=== PATIENT | male | born 1940 | race Caucasian/White ===

== ENCOUNTER 2021-04-23 17:27 | Inpatient (IN) | payer MEDICARE, OTHER ==
[~2021-04-23] VITALS: Ht 177.8 cm; Wt 63.6 kg
[~2021-04-23 17:27] MED LIST: HYDR-4383 PO; LISI5TAB22 PO
[2021-04-23 18:06] LABS: BASOPHILS % (AUTO) 0.3 % (0-1); EOSINOPHILS % (AUTO) 0.2 % (0-6); HEMATOCRIT 38.6 % (42.0-52.0); LYMPHOCYTES # (AUTO) 0.8 X10'3 (1.1-4.8); LYMPHOCYTES % (AUTO) 7.2 % (21-51); MEAN CORPUSCULAR HEMOGLOBIN 32.1 PG (27.0-31.0); MEAN CORPUSCULAR HGB CONC 33.6 g/dL (33.0-36.5); MEAN CORPUSCULAR VOLUME 95.4 FL (78-98); MEAN PLATELET VOLUME 6.8 FL (7.4-10.4); MONOCYTES # (AUTO) 0.7 X10'3 (0-0.9); MONOCYTES % (AUTO) 6.1 % (2-12); NEUTROPHILS # (AUTO) 9.2 X10'3 (1.8-7.7); NEUTROPHILS % (AUTO) 86.2 % (42-75); PLATELET COUNT 353 X10'3 (140-440); RED BLOOD COUNT 4.04 X10'6 (4.70-6.10); RED CELL DISTRIBUTION WIDTH 14.2 % (11.5-14.5); WHITE BLOOD COUNT 10.7 X10'3 (4.5-11.0)
[2021-04-23 18:20] LABS: ALANINE AMINOTRANSFERASE 21 U/L (12-78); ALBUMIN 3.3 G/DL (3.4-5.0); ALBUMIN/GLOBULIN RATIO 0.9 (1.1-1.5); ALKALINE PHOSPHATASE 138 IU/L (46-116); ANION GAP 9 (8-16); ASPARTATE AMINO TRANSFERASE 32 U/L (10-37); BILIRUBIN,TOTAL 1.4 MG/DL (0.1-1.0); BLOOD UREA NITROGEN 28 MG/DL (7-18); CALCIUM 8.8 MG/DL (8.5-10.1); CHLORIDE 105 MMOL/L (99-107); CREATININE 1.27 MG/DL (0.60-1.10); GLUCOSE 129 MG/DL (70-104); POTASSIUM 3.5 MMOL/L (3.5-5.1); SODIUM 142 MMOL/L (135-145); TOTAL CARBON DIOXIDE 27.7 MMOL/L (24-32); TOTAL PROTEIN 6.9 G/DL (6.4-8.2); eGFR 54 ML/MIN
--- NOTE | 2021-04-23 19:02 | NUR ---
PER DR. CORDOVA, NO CATH FOR URINE. COMFORT MEASURES ONLY.
--- NOTE | 2021-04-24 04:59 | NUR ---
PT HAS BEEN SLEEPING THROUGH THE NIGHT. NAD.
[2021-04-24 15:11] VITALS: BP 199/83
--- NOTE | 2021-04-24 16:05 | NUR ---
PAGER ID: [phone] MESSAGE: [id number] Sean Collins. Comfort Care patient from ER... I need meds for him. Lidia [id number]
[2021-04-24] MEDS ORDERED: LORazepam 2 mg/ml vial IV PRN (16:25)
[2021-04-24] MEDS ORDERED: LORazepam 1 MG tablet PO PRN ×2 (16:40→17:45)
[2021-04-24] MEDS: morphine 10mg/0.5ml (conc. morphine) oral syringe PO PRN ×2 (16:41→21:19)
[2021-04-24] MEDS ORDERED: haloperidol lactate 5mg/ml inj IM ONE (18:00)
--- NOTE | 2021-04-24 20:00 | NUR ---
Received pt in bed, he appears to be resting (right side-lying). Arousable with shaking but he resists care and examination. Positioned with pillows. Frequent monitoring in place
--- NOTE | 2021-04-25 04:49 | NUR ---
Medicated once at 2118 for pain. Otherwise he slept throughout the shift. Haldol not given
--- NOTE | 2021-04-25 06:30 | NUR ---
Change of shift report given to Christine RN Addendum: 04/25/21 at 0650 by Domonique Ponce RN Amended: Links added.
[2021-04-25 07:00] VITALS: BP 81/36
--- NOTE | 2021-04-25 13:37 | NUR ---
Noted pt made DNR w/ comfort care per EMR. No documented BM this admit currently w/ NPO diet active in EMR. Will continue to follow. Rec: 1. bowel care per rx Addendum: 04/25/21 at [address] Amended: Links added.
[2021-04-25 18:50] VITALS: BP 95/43
[2021-04-25] MEDS: morphine 10mg/0.5ml (conc. morphine) oral syringe PO PRN (20:28)
--- NOTE | 2021-04-26 06:20 | NUR ---
Problems reprioritized. Patient report given, questions answered & plan of care reviewed with ROSEANNA. Addendum: 04/26/21 at 0620 by Luciano Antony RN Amended: Links added.
[2021-04-26 08:00] VITALS: BP 190/99
[2021-04-26] MEDS: morphine 10mg/0.5ml (conc. morphine) oral syringe PO PRN (11:33)
--- NOTE | 2021-04-26 11:34 | NUR ---
patient is moving constantly and SBP is 180 now and was 170 at 700am. Medicated patient with liquid morphine. patient is not oriented
[2021-04-26 12:00] VITALS: BP 183/80
--- NOTE | 2021-04-26 18:58 | NUR ---
Patient in room [facility]. I have received report from EFRA King and had the opportunity to ask questions and assume patient care.
[2021-04-26 20:00] VITALS: BP 142/78
[2021-04-27] MEDS: morphine 10mg/0.5ml (conc. morphine) oral syringe PO PRN ×2 (04:24→19:29)
--- NOTE | 2021-04-27 06:22 | NUR ---
Problems reprioritized. Patient report given, questions answered & plan of care reviewed with EFRA King.
[2021-04-27 08:00] VITALS: BP 165/75
[2021-04-27 20:00] VITALS: BP 153/83
[2021-04-28 08:00] VITALS: BP 169/71
--- NOTE | 2021-04-28 11:00 | NUR ---
Spoke to patients step daughter Meaghan who states she wants the patient to go to salesperson women's dresses office when he passes because she can't afford or cremation. Spoke to Karina case management who stated: Meaghan the stepdaughter will have to fill out application for indingent cremation if she wants him to go to coroners office when he passes. Patients step daughter will have to fill out the paper work and take to coroners office herself. Karina will fax up paper work that we will place in the chart.
--- NOTE | 2021-04-28 14:01 | NUR ---
PAGER ID: [phone] MESSAGE: [facility] [id number] Re: Dennis HollinsA Can I place a cevallos for comfort care?
--- NOTE | 2021-04-28 14:55 | NUR ---
PAGER ID: [phone] MESSAGE: [id number] Re: Dennis HollinsA can I put cevallos in for comfort care orders Dr Padilla called back stated no she does not want to a cevallos placed in patient she is worried about infection occurring. I advised I have tried a Condom cath x2 and it will not stay in place. I am concerned about skin break down. Per Dr Padilla she is concerned about infection so no cevallos at this time. Addendum: 04/28/21 at 1651 by Rayne So RN Tamera Harding is aware of paperwork in chart she will make arrangements to poultry picker the paperwork.
--- NOTE | 2021-04-28 18:20 | NUR ---
Problems reprioritized. Patient report given, questions answered & plan of care reviewed with Lindsey KRAUS.
[2021-04-28 20:00] VITALS: BP 183/66
--- NOTE | 2021-04-29 14:25 | NUR ---
I addressed with Dr Padilla again regarding getting a Cevallos catheter for comfort and she does not want a cevallos in patient. Reminded her patient is incontinent and a condom cath does not work on patient and patient is very contracted and hard to move.
--- NOTE | 2021-04-29 18:30 | NUR ---
Patient in room [facility]. I have received report from NETTA and had the opportunity to ask questions and assume patient care.
[2021-04-29 19:00] VITALS: BP 142/80
--- NOTE | 2021-04-29 19:09 | NUR ---
Problems reprioritized. Patient report given, questions answered & plan of care reviewed with Ivonne KRAUS.
[2021-04-29] MEDS: morphine 10mg/0.5ml (conc. morphine) oral syringe PO PRN (20:20)
[2021-04-30] MEDS: morphine 10mg/0.5ml (conc. morphine) oral syringe PO PRN ×4 (02:43→21:00)
--- NOTE | 2021-04-30 07:00 | NUR ---
Problems reprioritized. Patient report given, questions answered & plan of care reviewed with ZOYA.
--- NOTE | 2021-04-30 07:11 | NUR ---
Patient in room [facility]. I have received report from EFRA Coronado and had the opportunity to ask questions and assume patient care.
--- NOTE | 2021-04-30 18:39 | NUR ---
Problems reprioritized. Patient report given, questions answered & plan of care reviewed with EFRA Mcintosh.
[2021-04-30 18:40] VITALS: BP 194/112
[2021-04-30 19:00] VITALS: BP 194/112
[2021-05-01] MEDS: morphine 10mg/0.5ml (conc. morphine) oral syringe PO PRN ×4 (05:34→21:44)
--- NOTE | 2021-05-01 06:44 | NUR ---
Problems reprioritized. Patient report given, questions answered & plan of care reviewed with SALOMON. Addendum: 05/01/21 at 0645 by Luciano Antony RN Amended: Links added.
[2021-05-01 07:30] VITALS: BP 184/95
--- NOTE | 2021-05-01 07:51 | NUR ---
Noted pt made DNR w/ comfort care per EMR. No documented BM this admit currently w/ NPO diet active in EMR since 04/24. Will continue to follow. Rec: 1. bowel care per rx Addendum: 05/01/21 at [address] Amended: Links added.
--- NOTE | 2021-05-01 08:43 | NUR ---
Unable to do oral care, patient tries to bite and clamps down on anything that comes into his mouth.
[2021-05-01 12:00] VITALS: BP 182/110
[2021-05-01 19:00] VITALS: BP 197/107
[2021-05-02] MEDS: morphine 10mg/0.5ml (conc. morphine) oral syringe PO PRN ×3 (04:13→19:08)
[2021-05-02 07:00] VITALS: BP 184/104
[2021-05-02] MEDS ORDERED: LIDOcaine 2% 10ml TOPICAL JELLY (Urojet) TP ONE (10:10)
--- NOTE | 2021-05-02 11:13 | NUR ---
Cevallos catheter Fr16 inserted using sterile technique. Lidocaine jelly applied prior to insertion of cevallos catheter. Patient urinated on the dry flow just before I started inserting the cevallos. I did not see any urine flow when I inserted the cevallos catheter then as I finished blood noticed coming out, must have been traumatized. Irrigated cevallos catheter with normal saline.
--- NOTE | 2021-05-02 17:35 | NUR ---
Patient comfortable at this time, no signs of pain
--- NOTE | 2021-05-02 17:40 | NUR ---
Patient has little amount of urine from the cevallos catheter tubing, did not drained it at this time. Patient has not been eating nor drinking and he was not getting any IV fluid.
--- NOTE | 2021-05-02 18:32 | NUR ---
Problems reprioritized. Patient report given, questions answered & plan of care reviewed with Belle KRAUS.
[2021-05-02 20:00] VITALS: BP 156/100
--- NOTE | 2021-05-03 01:54 | NUR ---
Pt at 0154 pronounced by Charge EFRA Mcintosh
--- NOTE | 2021-05-03 02:13 | NUR ---
Notified pt family Meaghankamlia Amezcua (step daughter) of his expiration. Also let her know that she needed to pick a mortuary. She said she would call back when she knew which one she wanted to go with. She mentioned something about the garment mender and that she didn't have money for a mortuary. I let her know that we do not have a mortuary here at the hospital and she needed to choose one. She said she would call back with her choice.
--- NOTE | 2021-05-03 05:52 | NUR ---
Pt family member Meaghan was called back to find out what mortuary she had chosen and she said she was calling the hem marker when they opened. I explained to her that she had to choose a mortuary because we have nowhere to facilitate the decedent on our premises. She told me to choose a mortuary then. Dea Pepe was called and will be coming as soon as possible.
--- NOTE | 2021-05-03 06:44 | NUR ---
Problems reprioritized. Patient report given, questions answered & plan of care reviewed with EFRA Rader.
== END 2021-05-03 06:40 | DRG 64 ==
LOC: ER 17:28 → EDBD 17:28 → ED HOLD 21:51 → EDBEDREQ 04-24 14:20 → SUR 3N 04-24 15:00
PROVIDERS: ADMIT Internal Medicine; ATTEND Internal Medicine
DX: I62.01 Nontraumatic acute subdural hemorrhage (principal); G93.6 Cerebral edema; R64 Cachexia; F03.90 Unspecified dementia, unspecified severity, without behavioral disturbance, psychotic disturbance, mood disturbance, and anxiety; I62.03 Nontraumatic chronic subdural hemorrhage; I25.10 Atherosclerotic heart disease of native coronary artery without angina pectoris; R40.0 Somnolence; Z66 Do not resuscitate; Z51.5 Encounter for palliative care; Z86.73 Personal history of transient ischemic attack (TIA), and cerebral infarction without residual deficits; Z95.1 Presence of aortocoronary bypass graft; Z68.20 Body mass index [BMI] 20.0-20.9, adult
CPT/HCPCS: 36415; 70450; 71045; 80053; 84443; 85025; 85610; 93005; 99285; G0378